=== PATIENT | male | born 1955 | race Caucasian/White ===

== ENCOUNTER → 2021-09-30 | Outpatient (CLI) | payer BC ==
[~2021-09-30] MED LIST: BAMLANIVIMAB (EUA) 700 MG, ETESEVIMAB (EUA) 1,400 MG in SODIUM CHLORIDE 0.9% 100 ML IVPB NR; SODIUM CHLORIDE 0.9% 50 ML IVPB ONE; SODIUM CHLORIDE 0.9% 500 ML 500 ML in EMPTY BAG 1 BAG IV PRN
[2021-09-30 13:51] VITALS: RESP 16
[2021-09-30 14:01] VITALS: TEMP 97.1
[2021-09-30 14:18] VITALS: BP 160/80; PULSE 82
== END ==
LOC: PROCWHC3 13:08
PROVIDERS: ATTEND Internal Medicine
DX: U07.1 COVID-19 (principal); N18.9 Chronic kidney disease, unspecified
CPT/HCPCS: 96360; J3490; M0245